=== PATIENT | female | born 1975 | race Caucasian/White ===

== ENCOUNTER → 2017-02-23 | Outpatient (CLI) | payer BC ==
[2017-02-23 16:40] LABS: Basophils # (A) 0.1 k/uL (0-0.2); Basophils % (A) 1 %; CH 30.9; CHCM 31.5; Eosinophils # (A) 0.2 k/uL (0-0.7); Eosinophils % (A) 3 %; HCT 51.5 % (34.0-46.0); HDW 2.19; HGB 16.2 gm/dL (11.4-16.0); Luc # (Auto) 0.18; Luc % (Auto) 2; Lymphocytes # (A) 2.1 k/uL (1.0-4.8); Lymphocytes % (A) 25 %; MCH 30.9 pg (25.0-35.0); MCHC 31.4 g/dL (31.0-37.0); MCV 98.5 fL (80.0-100.0); Mean Platelet Volume 7.8; Monocytes # (A) 0.3 k/uL (0-1.0); Monocytes % (A) 3 %; Neutrophils # (A) 5.5 k/uL (1.3-7.7); Neutrophils % (A) 66 %; RBC 5.23 m/uL (3.80-5.40); RDW 13.1 % (11.5-15.5); WBC 8.4 k/uL (3.8-10.6); WBC (Perox) 8.24
[2017-02-23 16:45] LABS: Anion Gap 10 mmol/L; Blood Urea Nitrogen 16 mg/dL (7-17); Calcium 8.8 mg/dL (8.4-10.2); Carbon Dioxide 24 mmol/L (22-30); Chloride 106 mmol/L (98-107); Glucose 81 mg/dL (74-99); Non-African American GFR(MDRD) 55 (>60 ml/min/1.73 sqM); Potassium 4.2 mmol/L (3.5-5.1); Sodium 140 mmol/L (137-145)
== END ==
LOC: LABWHC1 16:02
PROVIDERS: ATTEND Urology
DX: Z01.812 Encounter for preprocedural laboratory examination (principal); N39.3 Stress incontinence (female) (male); E66.9 Obesity, unspecified; R35.0 Frequency of micturition
CPT/HCPCS: 36415; 80048; 85025; 87086

== ENCOUNTER 2017-03-02 07:45 | Day surgery (SDC) | payer BC ==
[2017-02-21 11:34] VITALS: BMI 44.9
[~2017-03-02 07:45] MED LIST: DEXAMETHASONE SOD PHOSPHATE 10 MG/ML 1 ML VIAL IV ONE; HYDROmorphone 1 MG/ML 1 ML SYRINGE IVP PRN; LACTATED RINGERS 1,000 ML IV SCH; LEVOFLOXACIN 500MG-D5W PMX 500 MG in DEXTROSE/WATER 1 100ML.BAG IVPB ONE; MIDAZOLAM 2 MG/2 ML VIAL IV PRN; ONDANSETRON 4 MG/2 ML VIAL IVP ONE; SCOPOLAMINE 1.5MG/72HR PATCH TRANSDERM ONE
[2017-03-02] MEDS ORDERED: LACTATED RINGERS 1,000 ML IV ONE ×2 (08:06→09:45)
[2017-03-02] MEDS ORDERED: LIDOCAINE 1% 20 ML VIAL (10MG/ML) FOR IV START INTRADERMA ONE (08:22)
[2017-03-02] MEDS ORDERED: fentaNYL (PF) 50 MCG/ML 2 ML AMP ONE (09:12)
[2017-03-02] MEDS ORDERED: ROCURONIUM BROMIDE 10 MG/ML 10 ML VIAL IV ONE (09:12)
[2017-03-02] MEDS ORDERED: KETOROLAC 30 MG/ML 1 ML VIAL ONE (09:12)
[2017-03-02] MEDS ORDERED: LIDOCAINE 1% INJ 10MG/ML (20 ML MDV) ONE (09:12)
[2017-03-02] MEDS ORDERED: PROPOFOL 10 MG/ML 20 ML VIAL IV ONE (09:12)
[2017-03-02] MEDS ORDERED: MIDAZOLAM 2 MG/2 ML VIAL ONE (09:12)
[2017-03-02] MEDS ORDERED: SUCCINYLCHOLINE CHLORIDE 100 MG/5 ML SYR IV ONE (09:12)
[2017-03-02] MEDS ORDERED: PHENYLEPHRINE-0.9% NACL SYG 1 MG/10 ML SYRINGE ONE (09:12)
[2017-03-02] MEDS ORDERED: NEOSTIGMINE 1 MG/ML 10 ML VIAL ONE (09:12)
[2017-03-02] MEDS ORDERED: GLYCOPYRROLATE 0.2 MG/ML 2 ML VIAL ONE (09:12)
[2017-03-02] MEDS ORDERED: GENTAMICIN IN NACL ISO-OSM PMX 80 MG/100 ML BAG IVPB ONE (09:34)
[2017-03-02] MEDS ORDERED: BUPIVACAIN-EPI 0.5%-1:200,000 30 ML VIAL SQ ONE ×2 (09:35)
[2017-03-02] MEDS ORDERED: BACITRACIN 500 UNIT/GM OINT 28.4 GM TUBE TOPICAL ONE (10:05)
[2017-03-02 10:25] VITALS: TEMP 97.1
[2017-03-02] MEDS ORDERED: Acetaminophen-Codeine 300-30mg TAB PO ONE (12:16)
[2017-03-02 13:16] VITALS: BP 129/85; PULSE 56; RESP 16
--- NOTE | 2017-03-02 20:15 | OP ---
DATE OF SERVICE: SURGEON: IRMA GÓMEZ MD PREOPERATIVE DIAGNOSIS: Stress urinary incontinence. POSTOPERATIVE DIAGNOSIS: Stress urinary incontinence. OPERATION: [facility] Retropubic midurethral sling and cystoscopy. ANESTHESIA: General anesthesia. ESTIMATED BLOOD LOSS: 150 ml INDICATIONS: The patient is a 41-year-old female with a history of stress urinary incontinence which currently requires 4 to 6 pads daily. The patient has not improved with Kegel exercises. Treatment options were reviewed and the patient has elected to proceed with a retropubic midurethral sling. DESCRIPTION OF PROCEDURE: The patient was taken to the operating suite where adequate general anesthesia via orotracheal intubation was instituted. The patient was placed in the dorsal lithotomy position with her legs suspended from padded Sami stirrups. Pneumatic compression stockings were applied to the lower legs. Betadine vaginal prep was performed. The lower abdomen, groins and perineum were then prepped with Betadine soap, painted with Betadine solution, and draped in a sterile fashion. A 16 [place] Shepherd catheter was inserted to drain the bladder. 8 mL of 0.25% bupivacaine with epinephrine was infiltrated under the vaginal mucosa in the mid urethra and lateral to the urethra on each side. A 2 cm midline incision was made in the vaginal mucosa overlying the mid urethra. The vaginal mucosa was dissected away from the underlying urethra. The mucosa was dissected laterally on each side until a finger could be passed through the incision and directed out to near the inferior pubic ramus on each side. Bleeding vessels were controlled using electrocautery. 1 cm skin incisions were then made in the skin overlying the pubic symphysis 2 cm to the right and 2 cm to the left of the midline. A curved introducer was then placed through the right skin incision and directed through the subcutaneous fat down to the region where the rectus fascia attached to the pubis. The introducer was then passed posterior to the pubis and anterior to the bladder. It was directed out lateral to the urethra with a finger placed through the vaginal incision. An identical procedure was then performed on through the left suprapubic incision where a curved introducer was passed anterior to the bladder and posterior to the pubis and directed out lateral to the left side of the urethra with a finger placed in the vaginal incision. The Shepherd catheter was removed cystoscopy was performed using the 17 Mont[place] sheath and 70 degrees lens. Both ureteral orifices were of normal location and configuration and effluxed clear urine. The bladder was free of tumor, foreign body and perforation. There was no blood present within the bladder. The cystoscope was removed and the Shepherd catheter was reinserted. A [employer] graft was then attached to the right and left introducers, which were then pulled up into the suprapubic incision. The graft was positioned over the mid urethra and the plastic sheathing was withdrawn. Correct position of the graft with no upward traction was confirmed. The vaginal mucosa was then closed using running 3-0 Vicryl. Pressure was then placed with a finger along the urethra and posterior to the pubis on each side of the urethra and held for approximately 5 minutes. After ensuring adequate hemostasis, the graft was then trimmed to beneath the skin level on each side of the suprapubic area and the skin incisions were closed with Mastisol and Steri-Strips. 2 inches iodoform gauze with bacitracin was placed into the vagina for packing. The patient tolerated the procedure well and left the operating room awake and in satisfactory condition. Blood loss was between 120 and 150 mL. Patient was returned to the recovery room, awake, extubated, and in satisfactory condition. Final sponge, needle and instrument counts were reported as correct. Patient's catheter will be filled to 250 mL in approximately 4 hours and her catheter will be removed. If she is able to void with an acceptably low post void residual, she will be discharged later in the day. RAFAT
== END 2017-03-02 14:33 | disposition home or self-care (01) ==
LOC: OR 07:45
PROVIDERS: ATTEND Urology
DX: N39.3 Stress incontinence (female) (male) (principal); E66.9 Obesity, unspecified; Z68.41 Body mass index [BMI] 40.0-44.9, adult; F17.200 Nicotine dependence, unspecified, uncomplicated; Z79.899 Other long term (current) drug therapy
CPT/HCPCS: 81025; 57288; C1771; J1580; J2250; J1100; J2710; J2405; J1956; J2001; J3010; J1885; J2370; J0330; J2704